=== PATIENT | female | born 2000 ===

== ENCOUNTER → 2019-03-16 | Outpatient (CLI) | payer OTHER ==
[2019-03-16 15:43] LABS: CHOL/HDL RATIO 2.5; Cholesterol 101 mg/dL (50-200); HDL Cholesterol 41 mg/dL (>39); Low Density Lipoprotein Chol 39 mg/dL (0-110); Triglycerides 103 mg/dL (30-140); Very Low Density Lipoprot Chol 20 mg/dL (6-28)
== END | disposition home or self-care (01) ==
LOC: LAB 08:30 → LAB SHORT 08:30
PROVIDERS: Nurse Practitioner Family
DX: E66.9 Obesity, unspecified (principal); Z68.43 Body mass index [BMI] 50.0-59.9, adult
CPT/HCPCS: 80061; 83036

== ENCOUNTER 2019-06-08 11:21 | Emergency (ER) | payer OTHER ==
[~2019-06-08] VITALS: Ht 165.1 cm; Wt 122.0 kg
[2019-06-08 12:29] LABS: BASOPHILS ABSOLUTE AUTO 0.04 K/mm3 (0.00-0.23); BASOPHILS PERCENT AUTO 0 % (0-2); EOSINOPHILS ABSOLUTE AUTO 0.01 K/mm3 (0.00-0.68); EOSINOPHILS PERCENT AUTO 0 % (0-6); Hematocrit 44.8 % (33.0-51.0); Hemoglobin 14.3 g/dL (11.5-16.0); IMMATURE GRAN ABSOLUTE AUTO 0.06 K/mm3 (0.00-0.10); IMMATURE GRAN PERCENT AUTO 0 % (0-1); LYMPHOCYTES ABSOLUTE AUTO 0.88 K/mm3 (0.84-5.20); LYMPHOCYTES PERCENT AUTO 6 % (21-46); MONOCYTES ABSOLUTE AUTO 0.78 K/mm3 (0.16-1.47); MONOCYTES PERCENT AUTO 5 % (4-13); Mean Corpuscular HGB 28.1 pg (26.0-34.0); Mean Corpuscular HGB Conc 31.9 g/dL (31.5-36.5); Mean Corpuscular Volume 88 fL (80-100); Mean Platelet Volume 10.3 fL (9.1-12.4); NEUTROPHILS ABSOLUTE AUTO 14.22 K/mm3 (1.96-9.15); NEUTROPHILS PERCENT AUTO 89 % (41-73); Platelet Count 277 K/mm3 (150-400); RDW Coefficient Variation 12.8 % (11.7-14.2); RDW Standard Deviation 41.7 fL (35.1-46.3); Red Blood Cell Count 5.08 M/mm3 (3.80-5.20); White Blood Cell Count 15.99 K/mm3 (4.00-11.30)
[2019-06-08 12:46] LABS: Alanine Aminotransfer (ALT/SGP 165 U/L (12-78); Albumin/Globulin Ratio 1.1 (0.8-1.8); Alk Phos 53 U/L (50-136); Anion Gap 6 mmol/L (6-16); Aspartate Aminotrans (AST/SGOT 139 U/L (12-37); Bilirubin, Total 0.9 mg/dL (0.1-1.0); Blood Urea Nitrogen 11 mg/dL (8-24); Bun/Creatinine Ratio 15.5 (12.0-20.0); CO2, Blood 27 mmol/L (21-32); Calcium, Blood 9.4 mg/dL (8.5-10.1); Chloride, Blood 109 mmol/L (98-108); Creatinine, Blood 0.71 mg/dL (0.40-1.00); Globulin, Blood 3.5 g/dL (2.2-4.0); Glomerular Filtration Rate >60 (60-); Glucose, Blood 121 mg/dL (70-99); Sodium, Blood 142 mmol/L (136-145); Total Protein, Blood 7.5 g/dL (6.4-8.2)
[2019-06-08 12:50] LABS: Source, Urine Clean Catch
[2019-06-08 12:54] LABS: Blood, Urine Neg (Neg); Glucose Qualitative, Urine Neg (Neg); Ketones, Urine Neg (Neg); Leukocyte Esterase, Urine 1+ (Neg); Nitrite, Urine Neg (Neg); Protein, Urine Neg (Neg); Specific Gravity, Urine 1.025 (1.003-1.022); Urobilinogen, Urine 2+ (Normal)
[2019-06-08 13:08] LABS: Appearance, Urine Cloudy (Clear); Bacteria Not Seen /hpf; Bilirubin, Urine 1+ (Neg); Color, Urine Yellow (P-Yellow); Red Blood Cells, Urine Not Seen /hpf (0-2); Squamous Epithelial Cells Not Seen /hpf (Few); White Blood Cells, Urine 0-2 /hpf (0-5)
[2019-06-08 13:09] LABS: Amorphous Heavy (0-Heavy)
[2019-06-08] MEDS ORDERED: Zofran4 MG PO (13:52)
[2019-06-08] MEDS ORDERED: Norco 5-325 Ta1 EACH PO (13:52)
== END 2019-06-08 14:01 | disposition home or self-care (01) ==
LOC: ER 11:21
PROVIDERS: Emergency Medicine
DX: K80.20 Calculus of gallbladder without cholecystitis without obstruction (principal); J45.909 Unspecified asthma, uncomplicated
CPT/HCPCS: 36415; 76705; 80053; 81001; 83690; 85025; 87086; 99284-25

== ENCOUNTER 2019-06-22 08:11 | Day surgery (SDC) | payer OTHER ==
[~2019-06-22] VITALS: Ht 165.1 cm; Wt 119.3 kg
[~2019-06-22 08:11] MED LIST: Norco 5-325 Ta1 EACH PO; Zofran4 MG PO
--- NOTE | 2019-06-22 09:23 | NUR ---
Ambulatory in Day Surgery History, Chart, Medications and Allergies reviewed before start of procedure. Lungs clear T/O to Auscultation. Patient confirms NPO status and agrees with scheduled surgery. Pre-Op teaching done. Pt verbalizes understanding. Patient States Post-Procedure ride home has been arranged.
--- NOTE | 2019-06-22 12:20 | NUR ---
PT TO STEP DOWN FROM PACU. AWAKE, CONVERSING WITH STAFF. STATES PAIN LEVEL 1/10 AT THIS TIME. AWAITING ARRIVAL OF SISTER. DRSG STERI STRIPS X 4 SITES WITH VERY SMALL AMOUNT OF SEROSANGUINOUS OOZING. PT DENIES NAUSEA.
--- NOTE | 2019-06-22 12:48 | NUR ---
PT MEDICATED FOR C/O INCREASING PAIN 10/12. PERCOCET GIVEN PER ORDERS. PT TOLERATING PO FLUIDS AND CRACKERS WITHOUT NAUSEA AT THIS TIME. AWAITING RIDE HOME.
--- NOTE | 2019-06-22 13:26 | NUR ---
SUMMARY: PT HAD UNEVENTFUL POST OP COURSE. SISTER ARRIVED TO DRIVE PT HOME - REVIEWED ALL INSTRUCTIONS WITH PATIENT AND SISTER, BOTH OF WHOM VERBALIZED UNDERSTANDING OF ALL. PT DRESSED SELF WITH ASSISTANCE OF SISTER. IV DC TIP INTACT AND PT DISCHARGED HOME VIA WC. PT STATES PAIN LEVEL IMPROVED AND READY TO GO HOME.
== END 2019-06-22 23:07 | disposition home or self-care (01) ==
LOC: ORSCMMR 08:11 → ORD 10:30 → ORSCMMR 10:30
PROVIDERS: Surgery
PROC: 0FT44ZZ Resection of Gallbladder, Percutaneous Endoscopic Approach (ICD-10-PCS; principal; 2019-06-22 10:30)
PROC: BF121ZZ Fluoroscopy of Gallbladder using Low Osmolar Contrast (ICD-10-PCS; principal; 2019-06-22 10:30)
DX: K80.20 Calculus of gallbladder without cholecystitis without obstruction (principal); F41.8 Other specified anxiety disorders; E28.2 Polycystic ovarian syndrome; E66.9 Obesity, unspecified; Z68.41 Body mass index [BMI] 40.0-44.9, adult
CPT/HCPCS: 74300; 88304; C1729; J0690; J1100; J2250; J2405; J2704; J2710; J3010; J7120